=== PATIENT | female | born 1995 | race Caucasian/White ===

== ENCOUNTER 2021-04-18 14:46 | Inpatient (IN) ==
[~2021-04-18 14:46] MED LIST: *HR* Nalbuphine 10 MG/ML AMPUL IV PRN; FLU Vac QV 21-22 (6Month+)/PF 0.5 ML SYRINGE IM ONE; Famotidine 20 MG/2 ML VIAL IVP PRN; Metoclopramide 10 MG/2 ML VIAL IVP PRN; Naloxone 0.4 MG/ML INJ IVP PRN; Ondansetron 4 MG/2 ML VIAL IVP PRN
[2021-04-18] MEDS ORDERED: Ringers Solution, Lactated 1,000 ML IVC SCH (15:00)
[2021-04-18 16:33] LABS: Basophils % 0.4 %; Eosinophils % 0.4 %; Hematocrit 36.9 % (35.3-44.9); Hemoglobin 12.3 g/dL (11.5-15.4); Immature Granulocytes % 0.4 % (0-4); Lymphocytes # 1.4 K/mcL (0.6-4.6); Lymphocytes % 19.3 %; Mean Corpuscular HGB Conc 33.3 g/dL (31.6-35.5); Mean Corpuscular Volume 98.9 fL (83.0-100.0); Mean Platelet Volume 10.7 fL (9.4-12.4); Monocytes # 0.4 K/mcL (0.0-1.3); Monocytes % 5.7 %; Neutrophils # 5.4 K/mcL (1.6-8.9); Platelet Count 163 K/mcL (140-400); Red Blood Count 3.73 M/mcL (3.82-4.97); Red Cell Distribution Width 12.3 % (11.5-14.5); Segmented Neutrophils % 73.8 %; White Blood Count 7.3 K/mcL (4.3-11.1)
[2021-04-18 16:37] LABS: Amphetamine Screen,Urine Negative ng/mL (Cutoff=1000); Barbiturate Screen,Urine Negative ng/mL (Cutoff=200); Benzodiazepines Screen,Urine Negative ng/mL (Cutoff=200); Cannabinoid Screen,Urine Negative ng/mL (Cutoff = 50); Cocaine Screen,Urine Negative ng/mL (Cutoff= 300); Opiate Screen,Urine Negative ng/mL (Cutoff=300); Phencyclidine Screen,Urine Negative ng/mL (Cutoff=25)
[2021-04-18] MEDS ORDERED: Oxytocin 20 units/ LR 1000 mL 20 UNIT/1,000 ML BAG IVC SCH (17:30)
[2021-04-18 19:10] LABS: Influenza A PCR Negative (Negative); Influenza B PCR Negative (Negative); Resp. Syncytial Virus PCR Negative (Negative)
[2021-04-18 19:13] LABS: SARS-CoV-2 by PCR (In House) Negative (Negative)
[2021-04-18] MEDS ORDERED: Ropivacaine/PF 0.2% 20 ML VIAL EP ONE (22:15)
[2021-04-18] MEDS ORDERED: EPHEDrine 50 MG/ML VIAL IVP PRN (22:15)
[2021-04-18] MEDS ORDERED: Epidural Premix (fent/bupiv) 110 ML EP SCH (22:15)
[2021-04-18] MEDS ORDERED: *HR* FentaNYL (PF) 100 MCG/2 ML VIAL EP ONE (22:15)
[2021-04-19] MEDS ORDERED: Ropivacaine/PF 0.2% 20 ML VIAL ONE (05:13)
[2021-04-19] MEDS ORDERED: *HR* FentaNYL (PF) 100 MCG/2 ML VIAL ONE (05:13)
[2021-04-19] MEDS ORDERED: Oxytocin 20 units/ LR 1000 mL 20 UNIT/1,000 ML BAG IVC SCH (10:40)
[2021-04-19] MEDS ORDERED: Ondansetron ODT 4 MG TAB.RAPDIS SL PRN (10:40)
[2021-04-19] MEDS ORDERED: Measles/Mumps/Rubella Vacc 0.5 ML VIAL SQ PRN (10:40)
[2021-04-19] MEDS ORDERED: Lanolin 7 G OINT...G. TP PRN (10:40)
[2021-04-19] MEDS ORDERED: Rho Immune Globulin 1,500 UNIT SYRINGE IM PRN (10:40)
[2021-04-19] MEDS ORDERED: Benzocaine/Menthol 56 GM AEROSOL SPRAY TP PRN (10:40)
[2021-04-19] MEDS: Acetaminophen 325 MG TABLET PO SCH ×2 (18:55→20:10)
[2021-04-19] MEDS: Ibuprofen 600 MG TABLET PO SCH (20:11)
[2021-04-20 05:14] LABS: Basophils % 0.2 %; Eosinophils # 0.1 K/mcL (0.0-0.6); Eosinophils % 0.5 %; Hematocrit 33.9 % (35.3-44.9); Hemoglobin 11.4 g/dL (11.5-15.4); Immature Granulocytes % 0.6 % (0-4); Lymphocytes # 1.7 K/mcL (0.6-4.6); Lymphocytes % 10.4 %; Mean Corpuscular HGB Conc 33.6 g/dL (31.6-35.5); Mean Corpuscular Hemoglobin 32.9 pg (28.0-33.3); Mean Platelet Volume 10.9 fL (9.4-12.4); Monocytes # 0.6 K/mcL (0.0-1.3); Monocytes % 3.5 %; Neutrophils # 13.7 K/mcL (1.6-8.9); Platelet Count 137 K/mcL (140-400); Red Blood Count 3.46 M/mcL (3.82-4.97); Red Cell Distribution Width 12.2 % (11.5-14.5); Segmented Neutrophils % 84.8 %; White Blood Count 16.1 K/mcL (4.3-11.1)
[2021-04-20] MEDS: Acetaminophen 325 MG TABLET PO SCH (07:47)
[2021-04-20] MEDS: Ibuprofen 600 MG TABLET PO SCH (07:47)
[2021-04-20 08:30] VITALS: BP 108/66; PULSE 63; TEMP 98.6; O2SAT 98
[2021-04-20] MEDS ORDERED: Prenatal Vit/FA 1 EACH TABLET PO SCH (09:00)
== END 2021-04-20 12:00 | disposition home or self-care (01) | DRG 807 ==
LOC: 1NENULAB → 1NENUOBS 04-19 15:10
PROVIDERS: ADMIT Obstetrics & Gynecology; ATTEND Obstetrics & Gynecology